=== PATIENT | female | born 1990 | race American Indian/Alaskan Native ===

== ENCOUNTER 2016-09-30 18:49 | Emergency (ER) | payer MEDICAID ==
[2016-09-30 19:12] VITALS: BMI 34.2
[2016-09-30 19:16] VITALS: TEMP 101; O2SAT 100
[2016-09-30] MEDS ORDERED: Levalbuterol 0.63 MG/3 ML Inhal Soln UD IH STA (19:42)
[2016-09-30] MEDS ORDERED: guaiFENesin 200 mg/10 ml Syrup UD PO STA (19:42)
[2016-09-30] MEDS ORDERED: Sodium Chloride 0.9% 1,000 ML IV STA (19:42)
--- NOTE | 2016-09-30 19:47 | ED PDOC ---
Arrival/HPI - General Chief Complaint: Cough, Cold, Congestion Time Seen by Provider: 09/30/16 19:33 Historian: Patient - History of Present Illness Narrative History of Present Illness (Text): 09/30/16 19:44 26 y.o. female who denies any significant past medical history who comes to the ED with a complaint of sore throat and cough x 4 days associated with runny nose , which is consistent with previous allergies. No cp or sob. Patient says today has been having diffuse body aches associated with chills. She has not taken any medicine at home at all over the past 4 days. No abd pain or vomiting /diarrhea but does have some nausea. No urinary symptoms. Past Medical History - Psychiatric Hx Substance Use: No Family/Social History Family/Social History: Unknown Family HX Smoking Status: Light Smoker < 10 Cigarettes Daily Hx Alcohol Use: No Hx Substance Use: No Allergies/Home Meds Allergies/Adverse Reactions: Allergies No Known Allergies Allergy (Verified 09/30/16 19:12) Review of Systems - Review of Systems Constitutional: Other (chills). absent: Fevers Eyes: Normal ENT: Sore Throat, Rhinorrhea Respiratory: Cough, Sputum. absent: SOB Cardiovascular: absent: Chest Pain Gastrointestinal: Nausea. absent: Abdominal Pain, Diarrhea, Vomiting Genitourinary Female: Vaginal Discharge (mild disharge). absent: Dysuria, Frequency Musculoskeletal: Myalgias. absent: Joint Swelling Skin: absent: Rash Neurological: absent: Headache, Dizziness Endocrine: Normal Physical Exam Vital Signs Temp Pulse Resp BP Pulse Ox 09/30/16 23:00 86 16 119/68 100 09/30/16 19:14 101.0 F H 107 H 17 108/66 100 Temperature: Febrile Blood Pressure: Normal Pulse: Tachycardic Respiratory Rate: Normal Appearance: Positive for: Well-Appearing, Non-Toxic, Comfortable Pain Distress: None Mental Status: Positive for: Alert and Oriented X 3 - Systems Exam Head: Present: Atraumatic, Normocephalic Pupils: Present: PERRL Conjunctiva: Present: Normal Ears: Present: Normal, NORMAL TM, Normal Canal. No: Erythema Mouth: Present: Moist Mucous Membranes Pharnyx: Present: Normal. No: ERYTHEMA, EXUDATE Neck: Present: Normal Range of Motion. No: Meningeal Signs, Lymphadenopathy Respiratory/Chest: Present: Clear to Auscultation, Good Air Exchange. No: Respiratory Distress, Accessory Muscle Use Cardiovascular: Present: Regular Rate and Rhythm, Normal S1, S2. No: Murmurs Abdomen: Present: Normal Bowel Sounds. No: Tenderness, Distention, Peritoneal Signs Back: Present: Normal Inspection Upper Extremity: Present: Normal Inspection. No: Cyanosis, Edema Lower Extremity: Present: Normal Inspection. No: Edema Neurological: Present: GCS=15, CN II-XII Intact, Speech Normal Skin: Present: Warm, Dry, Normal Color. No: Rashes Psychiatric: Present: Alert, Oriented x 3, Normal Insight, Normal Concentration Medical Decision Making ED Course and Treatment: 09/30/16 19:47 Patient with noted recent history with fever here of 101.0 with otherwise unremarkable exam. Differential Diagnosis includes: Viral/Influenza vs. Bronchitis vs. Pneumonia vs. Strep vs. Allergies. Plan: - Labs - Rapid Flu / Rapid Strep - Famotidine, Zofran, IVF, Claritin, Xopenex, Toradol, Tylenol - CXR 09/30/16 23:20 Labs and CXR are unremarkable - will d/c on abx for bronchitis and antihistamines for allergies and has been instructed to f/u pmd. - Lab Interpretations Lab Results: 09/30/16 20:36 09/30/16 20:36 Lab Results 09/30/16 22:03: Influenza Typ A,B (EIA) Negative for flu a/b, Grp A Beta Strep Ag Negative 09/30/16 20:36: Sodium 138, Potassium 3.9, Chloride 100, Carbon Dioxide 26, Anion Gap 16, BUN 12, Creatinine 0.7, Est GFR ( Amer) > 60, Est GFR (Non- Af Amer) > 60, Random Glucose 104, Calcium 9.3, Total Bilirubin 0.9, AST 34, ALT 62 H, Alkaline Phosphatase 97, Total Protein 8.9 H, Albumin 4.4, Globulin 4.5, Albumin/Globulin Ratio 1.0 L, Lipase 56 09/30/16 20:36: Urine Color Yellow, Urine Appearance Slight-cloudy, Urine pH 6.0 , Ur Specific [place] >= 1.030, Urine Protein Trace H, Urine Glucose (UA) Negative, Urine Ketones Trace H, Urine Blood Negative, Urine Nitrate Negative, Urine Bilirubin Negative, Urine Urobilinogen 0.2, Ur Leukocyte Esterase Trace H , Urine RBC 0 - 2, Urine WBC 1 - 3, Ur Epithelial Cells 6 - 8, Urine Bacteria Few 09/30/16 20:36: WBC 10.6, RBC 4.63, Hgb 14.3, Hct 41.4, MCV 89.4, MCH 30.9, MCHC 34.5, RDW 12.7, Plt Count 341, MPV 11.7 H, Gran % 87.2 H, Lymph % (Auto) 9.0 L, Parker % (Auto) 3.6, Eos % (Auto) 0.1 L, Baso % (Auto) 0.1, Gran # 9.22 H, Lymph # 1.0 L, Parker # 0.4, Eos # 0.0, Baso # 0.01 - RAD Interpretation Radiology Orders: 09/30/16 19:42 CHEST TWO VIEWS (PA/LAT) [RAD] Stat - Medication Orders Current Medication Orders: Discontinued Medications Acetaminophen (Tylenol 325mg Tab) 975 mg PO STAT STA Stop: 09/30/16 19:42 Last Admin: 09/30/16 20:43 Dose: 975 mg Famotidine (Pepcid) 20 mg IVP STAT STA Stop: 09/30/16 19:42 Last Admin: 09/30/16 20:43 Dose: 20 mg Guaifenesin (Robitussin) 400 mg PO ONCE STA Stop: 09/30/16 19:43 Last Admin: 09/30/16 20:43 Dose: 400 mg Sodium Chloride (Sodium Chloride 0.9%) 1,000 mls @ 999 mls/hr IV .Q1H1M STA Stop: 09/30/16 20:42 Last Admin: 09/30/16 20:43 Dose: 999 mls/hr Ketorolac Tromethamine (Toradol) 30 mg IVP STAT STA Stop: 09/30/16 20:48 Last Admin: 09/30/16 21:42 Dose: 30 mg Levalbuterol HCl (Xopenex) 0.63 mg IH ONCE STA Stop: 09/30/16 19:43 Last Admin: 09/30/16 21:42 Dose: 0.63 mg Loratadine (Claritin) 10 mg PO ONCE STA Stop: 09/30/16 19:47 Last Admin: 09/30/16 20:43 Dose: 10 mg Ondansetron HCl (Zofran Inj) 4 mg IVP STAT STA Stop: 09/30/16 19:42 Last Admin: 09/30/16 20:43 Dose: 4 mg Disposition/Present on Arrival - Present on Arrival Any Indicators Present on Arrival: No History of DVT/PE: No History of Uncontrolled Diabetes: No Urinary Catheter: No History of Decub. Ulcer: No History Surgical Site Infection Following: None - Disposition Have Diagnosis and Disposition been Completed?: Yes Diagnosis: Bronchitis Disposition: HOME/ ROUTINE Disposition Time: 23:10 Patient Plan: Discharge Patient Problems: Current Active Problems Problem Status Onset Bronchitis Acute Condition: GOOD Discharge Instructions (ExitCare): Acute Bronchitis (ED) Additional Instructions: Avoid all smoking. Drink plenty of fluids. Use tylenol or advil for the fever and/or body aches. Use Robitussin DM for the cough. Take the medications as prescribed. Follow up with your primary care doctor or medical clinic. Return to the emergency department if any new concerning symptoms. Prescriptions: Azithromycin [Zithromax] 2 tab PO DAILY #6 tab Cetirizine HCl [Zyrtec] 1 tab PO DAILY PRN #30 capsule PRN Reason: Allergy Symptoms Referrals: Mary Freeman MD [Primary Care Provider] - [place] up with primary [facility] [place] [facility] [place] - Follow up with primary Forms: WORK NOTE
[2016-09-30 20:46] LABS: ADD MANUAL DIFF? NO
[2016-09-30 21:06] LABS: ALKALINE PHOSPHATASE 97 U/L (38-133); ALT/SGPT 62 U/L (7-56); AST/SGOT 34 U/L (15-39); BILIRUBIN,TOTAL 0.9 mg/dL (0.2-1.3); BLOOD UREA NITROGEN 12 mg/dL (7-21); CALCIUM 9.3 mg/dL (8.4-10.5); CARBON DIOXIDE 26 mmol/L (21-33); CHLORIDE 100 mmol/L (98-107); GFR AFRICAN-AMERICAN > 60; GLUCOSE,RANDOM 104 mg/dL (70-110); LIPASE 56 U/L (23-300); POTASSIUM 3.9 mmol/L (3.6-5.0); SODIUM 138 mmol/L (132-148); TOTAL PROTEIN 8.9 g/dL (5.8-8.3)
[2016-09-30 21:09] LABS: URINE BILIRUBIN NEGATIVE (NEGATIVE); URINE BLOOD NEGATIVE (NEGATIVE); URINE GLUCOSE (UA) NEGATIVE (NEGATIVE); URINE KETONE TRACE mg/dL (NEGATIVE); URINE LEUKOCYTE ESTERASE TRACE Leu/uL (NEGATIVE); URINE PROTEIN TRACE mg/dL (<30 mg/dL); URINE UROBILINOGEN 0.2 E.U./dL (<1 E.U./dL)
[2016-09-30 21:12] LABS: BASO # 0.01 K/mm3 (0.0-2.0); BASO % 0.1 % (0.0-3.0); EOS % 0.1 % (1.5-5.0); GRAN # 9.22 (1.4-6.5); GRAN % 87.2 % (50.0-68.0); HEMATOCRIT 41.4 % (36.0-48.0); MEAN CELL VOLUME 89.4 fL (80.0-105.0); MEAN CORPUSCULAR HEMOGLOBIN 30.9 pg (25.0-35.0); MEAN CORPUSCULAR HGB CONC 34.5 g/dl (31.0-37.0); MEAN PLATELET VOLUME 11.7 fl (7.0-11.0); MONO # 0.4 (0.1-0.6); MONO % 3.6 % (1.0-6.0); PLATELET COUNT 341 10^3/uL (120.0-450.0); RED CELL DISTRIBUTION WIDTH 12.7 % (11.5-14.5); WHITE BLOOD COUNT 10.6 10^3/ul (4.5-11.0)
[2016-09-30 21:19] LABS: URINE APPEARANCE SLIGHT-CLOUDY (CLEAR); URINE COLOR YELLOW (YELLOW)
[2016-09-30 21:26] LABS: URINE BACTERIA FEW (NEG); URINE RBC 0 - 2 /hpf (0-2)
[2016-09-30 23:14] VITALS: BP 119/68; PULSE 86; RESP 16
--- NOTE | 2016-10-01 08:49 | RAD ---
HISTORY: fever, cough COMPARISON: No prior. TECHNIQUE: Chest PA and lateral FINDINGS: LUNGS: The lungs are well inflated and clear. PLEURA: No significant pleural effusion identified. No pneumothorax apparent. CARDIOVASCULAR: Normal. OSSEOUS STRUCTURES: No significant abnormalities. VISUALIZED UPPER ABDOMEN: Normal. OTHER FINDINGS: None. IMPRESSION: No active pulmonary disease.
== END 2016-09-30 23:58 | disposition home or self-care (01) ==
LOC: ED 18:49 → MERGE 18:49 → ED 23:58
DX: J20.9 Acute bronchitis, unspecified (principal); Z72.0 Tobacco use
CPT/HCPCS: 71020; 80053; 81001; 83690; 85025; 87070; 87086; 87430; 87491; 87591; 87804; 96374; 96375; 99283; J1885; J2405; J7040

== ENCOUNTER 2018-03-09 12:50 | Emergency (ER) | payer MEDICAID ==
[2018-03-09 12:50] VITALS: BMI 34.2
[2018-03-09 13:37] VITALS: RESP 18; TEMP 98; O2SAT 100
--- NOTE | 2018-03-09 13:56 | ED PDOC ---
Arrival/HPI - General Chief Complaint: Lower Extremity Problem/Injury Time Seen by Provider: 03/09/18 13:46 Historian: Patient - History of Present Illness Narrative History of Present Illness (Text): 03/09/18 13:53 28yo female with no pmhx who present with complaint of left knee since yesterday. States she heard a "popping" sound while standing on top of a chair yesterday to grab an object. States she started having pain s/p. she did not take any medication for the pain. Able to ambulate with pain. Denies any other complaint. Past Medical History - Provider Review Nursing Documentation Reviewed: Yes - Infectious Disease Hx of Infectious Diseases: None - Reproductive Menopause: No - Psychiatric Hx Substance Use: No - Anesthesia Hx Anesthesia: No Family/Social History - Physician Review Nursing Documentation Reviewed: Yes Family/Social History: Unknown Family HX Smoking Status: Never Smoked Hx Alcohol Use: No Hx Substance Use: No Allergies/Home Meds Allergies/Adverse Reactions: Allergies No Known Allergies Allergy (Verified 03/09/18 13:37) Review of Systems - Physician Review All systems were reviewed & negative as marked: Yes - Review of Systems Constitutional: Normal Eyes: Normal ENT: Normal Respiratory: Normal Cardiovascular: Normal Gastrointestinal: Normal Genitourinary Female: Normal Musculoskeletal: Arthralgias (Left knee) Skin: Normal Neurological: Normal Endocrine: Normal Hemo/Lymphatic: Normal Psychiatric: Normal Physical Exam Vital Signs Reviewed: Yes Vital Signs Temp Pulse Resp BP Pulse Ox 03/09/18 13:34 98 F 74 18 122/76 100 Temperature: Afebrile Blood Pressure: Normal Pulse: Regular Respiratory Rate: Normal Appearance: Positive for: Well-Appearing, Non-Toxic, Comfortable Pain Distress: None Mental Status: Positive for: Alert and Oriented X 3 - Systems Exam Head: Present: Atraumatic, Normocephalic Pupils: Present: PERRL Extroacular Muscles: Present: EOMI Conjunctiva: Present: Normal Mouth: Present: Moist Mucous Membranes Neck: Present: Normal Range of Motion Respiratory/Chest: Present: Clear to Auscultation, Good Air Exchange. No: Respiratory Distress, Accessory Muscle Use Cardiovascular: Present: Regular Rate and Rhythm, Normal S1, S2. No: Murmurs Abdomen: No: Tenderness, Distention, Peritoneal Signs Back: Present: Normal Inspection Upper Extremity: Present: Normal Inspection. No: Cyanosis, Edema Lower Extremity: Present: Normal Inspection, NORMAL PULSES, Normal ROM, Tenderness (Over medial left knee), Neurovascularly Intact. No: Edema, Swelling, Deformity Neurological: Present: GCS=15, CN II-XII Intact, Speech Normal Skin: Present: Warm, Dry, Normal Color. No: Rashes Psychiatric: Present: Alert, Oriented x 3, Normal Insight, Normal Concentration Medical Decision Making ED Course and Treatment: 03/09/18 15:27 Left knee xray - No acute fracture/dislocation Result was DW the pt. Isauro wrap applied. Pt was ambulatory. Referred to ortho - RAD Interpretation Radiology Orders: 03/09/18 13:52 KNEE WITH PATELLA LEFT 3 VIEW [RAD] Stat Disposition/Present on Arrival - Present on Arrival Any Indicators Present on Arrival: No History of DVT/PE: No History of Uncontrolled Diabetes: No Urinary Catheter: No History of Decub. Ulcer: No History Surgical Site Infection Following: None - Disposition Have Diagnosis and Disposition been Completed?: Yes Diagnosis: Knee pain Disposition: HOME/ ROUTINE Disposition Time: 15:30 Patient Plan: Discharge Condition: STABLE Discharge Instructions (ExitCare): Knee Pain (DC) Additional Instructions: Follow up with your Doctor/orthopedist return to ED for any new or worsening symptoms Prescriptions: RX: Ibuprofen [Motrin Tab] 600 mg PO Q6 #15 tab Referrals: Santy Herrera MD [Staff Provider] - Follow up with primary Forms: [employer] (Kiswahili), WORK NOTE
[2018-03-09 15:43] VITALS: BP 124/76; PULSE 70
--- NOTE | 2018-03-09 16:18 | RAD ---
Date of service: 03/09/2018 PROCEDURE: Left Knee Radiographs. HISTORY: Pain. COMPARISON: None. FINDINGS: BONES: Normal. No fracture. JOINTS: Normal. No osteoarthritis. JOINT EFFUSION: None. OTHER FINDINGS: None. IMPRESSION: Normal radiographs of the left knee.
== END 2018-03-09 16:05 | disposition home or self-care (01) ==
LOC: ED 12:50
DX: M25.562 Pain in left knee (principal)